=== PATIENT | female | born 2000 | race American Indian/Alaskan Native ===

== ENCOUNTER → 2018-09-26 | Outpatient (REF) | payer OTHER | LOC: M SFHCLERA 14:49 | DX: R10.9 Unspecified abdominal pain (principal) ==

== ENCOUNTER 2019-02-09 01:13 | Emergency (ER) | payer OTHER ==
[~2019-02-09] VITALS: Ht 165.1 cm; Wt 65.9 kg
[2019-02-09] MEDS ORDERED: diphenhydrAMINE INJ 50MG/ML VIAL (J1200) IV ONE (02:00)
[2019-02-09] MEDS ORDERED: FAMOTIDINE INJ 20MG/2ML VIAL (S0028) IVP ONE (02:00)
[2019-02-09] MEDS ORDERED: methylPREDNISolone INJ 125 MG/2 ML VIAL (J2930) IV ONE (02:00)
[2019-02-09] MEDS ORDERED: FAMOTIDINE/NS 20 MG/50 ML BAG (S0028) IV ONE (02:00)
[2019-02-09] MEDS ORDERED: PRED20TA PO (03:00)
[2019-02-09 03:09] VITALS: BP 128/74
== END 2019-02-09 03:15 | disposition home or self-care (01) ==
LOC: M ED 01:13
DX: R22.0 Localized swelling, mass and lump, head (principal); T49.4X5A Adverse effect of keratolytics, keratoplastics, and other hair treatment drugs and preparations, initial encounter; H91.3 Deaf nonspeaking, not elsewhere classified; F17.210 Nicotine dependence, cigarettes, uncomplicated
CPT/HCPCS: 96374; 96375; 99284; J1200; J2930